=== PATIENT | female | born 1950 | race Caucasian/White ===

== ENCOUNTER → 2017-09-15 | Outpatient (CLI) | payer MEDICARE, OTHER | END | disposition home or self-care (01) | LOC: MAMMO 14:30 | PROVIDERS: ATTEND Obstetrics & Gynecology | DX: Z12.31 Encounter for screening mammogram for malignant neoplasm of breast (principal) | CPT/HCPCS: 77063; G0202 ==

== ENCOUNTER → 2018-06-01 | Outpatient (CLI) | payer MEDICARE, OTHER ==
--- NOTE | 2018-06-01 15:18 | MRI ---
EXAM DESCRIPTION: Brain w/wo Contrast: Magnetic Resonance Imaging. CLINICAL HISTORY: HEARING LOSS RT EAR COMPARISON: None. TECHNIQUE: Diffusion axial imaging of the brain. Multiplanar high-field unit, multiple conventional sequences through the IACs, and the brain, before and after standard dose gadolinium IV contrast. No adverse reactions. FINDINGS: Normal signal in the IACs with no abnormal enhancement and no mass. No fluid in the mastoid air cells. Normal contour of the cerebellopontine angles with no mass, normal enhancement. Paranasal sinuses are unremarkable. Pituitary gland occupies all of the sella compartment. Bony calvarium is intact. Base of the cerebellar tonsils is above the foramen magnum. Bilateral small multiple foci of hyperintense FLAIR and T2-weighted signal in the periventricular white matter and webb-white matter junctions of the cerebral hemispheres. Not associated with hemorrhage, diffusion restriction, or abnormal contrast enhancement. Normal signal in the bilateral basal ganglia. No hemorrhage, no cerebral edema, no mass-effect. Normal signal in the brainstem and cerebellar hemispheres. No hemorrhage, no cerebral edema, no mass-effect. No diffusion restriction or abnormal contrast enhancement. Concordance of the diffusion and non-diffusion sequences with no evidence of acute or subacute infarction. Cortical sulci, ventricles, and other CSF spaces, and the subdural spaces are normally configured..No effacement or displacement. No midline shift. No extra-axial hemorrhage. IMPRESSION: 1. Normal signal and enhancement of the cerebellopontine angles brainstem and vestibulocochlear nerves bilaterally. No mass, hemorrhage, or edema. 2. Multiple bilateral small foci of hyperintense signal in the periventricular white matter and subcortical white matter most likely related to cerebral microvascular disease. Less likely related to demyelinating process, migraines, inflammatory process, or vasculitis. No hemorrhage, abnormal contrast enhancement, or diffusion restriction in these lesions. Electronically signed by: Raul Saenz MD 06/01/2018 3:17 PM CDT
== END ==
LOC: MRI 08:00
PROVIDERS: ATTEND Otolaryngology
DX: H90.A21 Sensorineural hearing loss, unilateral, right ear, with restricted hearing on the contralateral side (principal)